=== PATIENT | female | born 1990 | race Caucasian/White ===

== ENCOUNTER 2016-07-09 11:31 | Inpatient (IN) | payer BC ==
[~2016-07-09] VITALS: Ht 157.5 cm; Wt 72.7 kg
[2016-07-09 11:38] VITALS: BP 125/80
[2016-07-09] MEDS ORDERED: D5%-LACTATED RINGERS 1,000 ML IV SCH (12:47)
[2016-07-09] MEDS ORDERED: LACTATED RINGERS 1,000 ML IV SCH (12:47)
[2016-07-09] MEDS ORDERED: OXYTOCIN 30U/ 0.9% NaCL 500ML 500 ML IV ONE (12:47)
[2016-07-09] MEDS ORDERED: OXYTOCIN 30U/ 0.9% NaCL 500ML 500 ML ONE (12:48)
[2016-07-09] MEDS ORDERED: FENTANYL PF 100 MCG/2ML IVPush PRN (13:00)
[2016-07-09] MEDS ORDERED: PENICILLIN GK 5,000,000 UNITS in DEXTROSE 5% 100 ML IVPB ONE (13:00)
[2016-07-09] MEDS ORDERED: FENTANYL PF 100 MCG/2ML IV PRN (13:00)
[2016-07-09] MEDS ORDERED: ONDANSETRON 2MG/ML, 2ML IVPush PRN (13:00)
[2016-07-09] MEDS ORDERED: TERBUTALINE 1 MG/ML, 1ML IVPush PRN (13:00)
[2016-07-09] MEDS ORDERED: NEWBORN KIT ONE (13:58)
[2016-07-09] MEDS ORDERED: MISOPROSTOL 200 MCG TABLET ONE (13:58)
[2016-07-09] MEDS ORDERED: LIDOCAINE 1%, 20ML ONE (13:58)
[2016-07-09] MEDS ORDERED: PREN-3 PO (16:03)
[2016-07-09] MEDS: PENICILLIN GK 2,500,000 UNITS in DEXTROSE 5% 100 ML IVPB SCH ×2 (17:37→22:00)
[2016-07-09] MEDS ORDERED: OXYTOCIN 30U/ 0.9% NaCL 500ML 500 ML IV PRN (19:04)
[2016-07-09] MEDS ORDERED: FENTANYL PF 100 MCG/2ML ONE (21:49)
[2016-07-09] MEDS ORDERED: ONDANSETRON 2MG/ML, 2ML IV PRN (23:00)
[2016-07-09] MEDS ORDERED: RHOGAM FROM BLOOD BANK 1 NOTE EA IM/IV ONE (23:00)
[2016-07-09] MEDS ORDERED: BISACODYL 10 MG SUPP PR PRN (23:00)
[2016-07-09] MEDS ORDERED: HYDROcodone/APAP 10/325 MG TABLET PO PRN (23:00)
[2016-07-09] MEDS ORDERED: METHYLERGONOVINE 0.2 MG/ML IM PRN (23:00)
[2016-07-09] MEDS ORDERED: METOCLOPRAMIDE 5 MG/ML, 2ML IV PRN (23:00)
[2016-07-09] MEDS ORDERED: MAGNESIUM HYDROXIDE 8%, 30ML UDC PO PRN (23:00)
[2016-07-09] MEDS ORDERED: GLYCERIN ADULT SUPP PR PRN (23:00)
[2016-07-09] MEDS ORDERED: MEASLES,MUMPS&RUBELLA VACC/PF 0.5 ML SQ PRN (23:00)
[2016-07-09] MEDS ORDERED: CARBOPROST TROMETHAMINE 250 MCG/ML, 1ML IM PRN (23:00)
[2016-07-09] MEDS ORDERED: CALCIUM CARBONATE 500 MG TAB.CHEW PO PRN (23:00)
[2016-07-09] MEDS ORDERED: ACETAMINOPHEN 325 MG TABLET PO PRN ×2 (23:00)
[2016-07-09] MEDS ORDERED: MISOPROSTOL 200 MCG TABLET PR PRN (23:00)
[2016-07-09] MEDS ORDERED: DIPH,PERTUSS(ACELL),TET VAC/PF NC IM-VACC PRN (23:00)
[2016-07-09] MEDS ORDERED: IBUPROFEN 600 MG TABLET ONE (23:53)
[2016-07-09] MEDS ORDERED: HYDROcodone/APAP 5/325 TABLET ONE (23:53)
[2016-07-09] MEDS: IBUPROFEN 600 MG TABLET PO PRN (23:55)
[2016-07-09] MEDS: HYDROcodone/APAP 5/325 TABLET PO PRN (23:55)
[2016-07-10 01:40] VITALS: BP 109/55
[2016-07-10] MEDS: OXYTOCIN 30U/ 0.9% NaCL 500ML 500 ML IV SCH ×3 (01:55→14:08)
[2016-07-10 04:25] VITALS: BP 108/61
[2016-07-10 07:55] VITALS: BP 111/70
[2016-07-10] MEDS: PRENATAL VIT/IRON/FA 1 EACH TABLET PO SCH (08:37)
[2016-07-10] MEDS: HYDROcodone/APAP 5/325 TABLET PO PRN (08:37)
[2016-07-10] MEDS: DOCUSATE 100 MG CAPSULE PO PRN ×2 (08:37→21:27)
[2016-07-10] MEDS: IBUPROFEN 600 MG TABLET PO PRN (08:38)
[2016-07-10 12:11] VITALS: BP 112/72
[2016-07-10 15:17] VITALS: BP 112/74
[2016-07-10 21:00] VITALS: BP 115/73
[2016-07-11] MEDS: OXYTOCIN 30U/ 0.9% NaCL 500ML 500 ML IV SCH (05:00)
[2016-07-11] MEDS ORDERED: IBUP-1222 PO (06:37)
[2016-07-11] MEDS ORDERED: HYDR-3240 PO (06:39)
[2016-07-11] MEDS ORDERED: DOCU-30 PO (06:40)
[2016-07-11 08:20] VITALS: BP 104/63
[2016-07-11] MEDS: IBUPROFEN 600 MG TABLET PO PRN (09:41)
[2016-07-11] MEDS: PRENATAL VIT/IRON/FA 1 EACH TABLET PO SCH (09:41)
[2016-07-11] MEDS: DOCUSATE 100 MG CAPSULE PO PRN (09:41)
== END 2016-07-11 12:30 | disposition home or self-care (01) | DRG 775 ==
LOC: LDOP 11:31 → LDIP 13:32 → 2NW 07-10 01:06
PROVIDERS: ADMIT Obstetrics & Gynecology; ATTEND Obstetrics & Gynecology
PROC: 10E0XZZ Delivery of Products of Conception, External Approach (ICD-10-PCS; principal; 2016-07-09)
PROC: 0KQM0ZZ Repair Perineum Muscle, Open Approach (ICD-10-PCS; 2016-07-09)
PROC: 10907ZC Drainage of Amniotic Fluid, Therapeutic from Products of Conception, Via Natural or Artificial Opening (ICD-10-PCS; 2016-07-09)
PROC: 3E0334Z Introduction of Serum, Toxoid and Vaccine into Peripheral Vein, Percutaneous Approach (ICD-10-PCS; 2016-07-09)
DX: O99.824 Streptococcus B carrier state complicating childbirth (principal); O76 Abnormality in fetal heart rate and rhythm complicating labor and delivery; O26.893 Other specified pregnancy related conditions, third trimester; O70.1 Second degree perineal laceration during delivery; O90.81 Anemia of the puerperium; D64.9 Anemia, unspecified; Z67.41 Type O blood, Rh negative; Z37.0 Single live birth; Z3A.39 39 weeks gestation of pregnancy
CPT/HCPCS: 36415; 85025; 85461; 86850; 86900; J2540; J2790; J3010; J2590; J7120

== ENCOUNTER 2017-01-26 16:17 | Observation (INO) | payer BC ==
[~2017-01-26] VITALS: Ht 157.5 cm; Wt 65.8 kg
[~2017-01-26 16:17] MED LIST: DOCU-131 PO; HYDR-3240 PO; IBUP-1222 PO; PREN-3 PO
[2017-01-26] MEDS ORDERED: SODIUM CHLORIDE 0.9% 1,000 ML IV ONE (16:32)
[2017-01-26] MEDS ORDERED: HYDROmorphone 1 MG/ML, 1ML ONE ×3 (16:45→18:51)
[2017-01-26] MEDS ORDERED: ONDANSETRON 2MG/ML, 2ML ONE (16:45)
[2017-01-26 16:56] LABS: HEMATOCRIT 43.4 % (34.6-47.8); WHITE BLOOD COUNT 9.8 x10^3/uL (3.4-10)
[2017-01-26] MEDS ORDERED: SODIUM CHLORIDE FLUSH 10ML SYR IVF ONE (17:00)
[2017-01-26] MEDS ORDERED: ONDANSETRON 2MG/ML, 2ML IVPush ONE (17:00)
[2017-01-26] MEDS ORDERED: HYDROmorphone 1 MG/ML, 1ML IVPush PRN (17:00)
[2017-01-26 17:08] LABS: ASPARTATE AMINO TRANSFERASE 12 U/L (15-37); BLOOD UREA NITROGEN 8 mg/dL (7-18)
[2017-01-26] MEDS ORDERED: KETOROLAC 30 MG/1 ML IVPush ONE (19:30)
[2017-01-26] MEDS ORDERED: METHOCARBAMOL 750 MG TABLET PO ONE (19:30)
[2017-01-26] MEDS ORDERED: METHOCARBAMOL 750 MG TABLET ONE (19:44)
[2017-01-26] MEDS ORDERED: KETOROLAC 30 MG/1 ML ONE (19:44)
[2017-01-26] MEDS ORDERED: SODIUM CHLORIDE FLUSH 10ML SYR IVF PRN (21:30)
[2017-01-26] MEDS ORDERED: METHOCARBAMOL 750 MG TABLET PO PRN (22:00)
[2017-01-26] MEDS ORDERED: DOCUSATE 100 MG CAPSULE PO PRN (22:00)
[2017-01-26] MEDS ORDERED: ACETAMINOPHEN 325 MG TABLET PO PRN (22:00)
[2017-01-26] MEDS ORDERED: POLYETHYLENE GLYCOL 17 GM PACKET PO PRN (22:00)
[2017-01-26] MEDS ORDERED: ONDANSETRON 2MG/ML, 2ML IVPush PRN (22:00)
[2017-01-26] MEDS ORDERED: HYDROmorphone 2 MG/ML, 1ML IVPush PRN (22:00)
[2017-01-26 22:37] VITALS: BP 117/77
[2017-01-27 02:45] VITALS: BP 116/74
[2017-01-27] MEDS: OXYcodone/APAP 5/325MG TABLET PO PRN ×2 (06:24→10:32)
[2017-01-27 08:07] VITALS: BP 93/58
[2017-01-27] MEDS: SODIUM CHLORIDE FLUSH 10ML SYR IVF SCH ×2 (09:00→19:53)
[2017-01-27] MEDS: SENNA/DOCUSATE TABLET PO SCH (09:21)
[2017-01-27] MEDS: KETOROLAC 30 MG/1 ML IVPush SCH ×3 (12:22→23:23)
[2017-01-27 14:09] VITALS: BP 95/60
[2017-01-27 20:14] VITALS: BP 97/61
[2017-01-28 01:48] VITALS: BP 96/60
[2017-01-28] MEDS: KETOROLAC 30 MG/1 ML IVPush SCH ×2 (05:49→11:11)
[2017-01-28 07:42] VITALS: BP 101/65
[2017-01-28] MEDS: SODIUM CHLORIDE FLUSH 10ML SYR IVF SCH (08:23)
[2017-01-28] MEDS: SENNA/DOCUSATE TABLET PO SCH (08:23)
[2017-01-28] MEDS ORDERED: METH750T2 PO (12:47)
[2017-01-28] MEDS ORDERED: OXYC5TAB3 PO (12:47)
== END 2017-01-28 14:30 | disposition home or self-care (01) ==
LOC: ED 17:46 → SUATTDRO 21:48 → INTOOBSV 21:56 → EDIP 21:56 → 3NW 22:07
PROVIDERS: ADMIT Family Medicine; ATTEND Hospitalist
DX: M54.31 Sciatica, right side (principal); M25.551 Pain in right hip; M79.604 Pain in right leg; G89.29 Other chronic pain; N39.3 Stress incontinence (female) (male); Z87.442 Personal history of urinary calculi
CPT/HCPCS: 36415; 74176; 80053; 81003; 83690; 84703; 85025; 87324; 96361; 96374; 96375; 96376; 97110; 97162; 99285; G0378; J1170; J1885; J2405; J7030